=== PATIENT | female | born 1990 | race African-American/Black ===

== ENCOUNTER 2019-11-08 17:31 | Emergency (ER) | payer MEDICAID, OTHER ==
[~2019-11-08] VITALS: Ht 162.6 cm; Wt 84.0 kg
[2019-11-08 20:47] LABS: BASOPHILS % 0.6 % (0.0-2.0); EOSINOPHILS % 10.4 % (0.0-5.0); HEMATOCRIT. 38.7 % (36.0-48.0); HEMOGLOBIN. 12.9 g/dL (12.0-16.0); LYMPHOCYTES % 27.6 % (20.0-50.0); MEAN CORPUSCULAR HEMOGLOBIN 28.3 pg (28.0-32.0); MEAN CORPUSCULAR VOLUME 84.9 fL (81.0-99.0); MEAN PLATELET VOLUME 8.8 fl (7.4-10.4); NEUTROPHILS % 52.4 % (40.0-76.0); PLATELET 229 x1000/uL (130-400); RED BLOOD CELL COUNT 4.56 mill/uL (4.2-5.4); RED CELL DISTRIBUTION WIDTH 13.9 % (11.6-14.6)
[2019-11-08 20:55] LABS: CHLORIDE 104 mEq/L (98-107)
[2019-11-08 21:02] LABS: PROTHROMBIN TIME 10.9 sec (9.6-11.0)
[2019-11-08 21:25] LABS: HCG SCREEN POSITIVE
[2019-11-08] MEDS ORDERED: ACETAMINOPHEN 325MG TABLET PO ONE (22:15)
[2019-11-08 22:36] LABS: CLARITY URINE CLEAR (CLEAR); COLOR URINE YELLOW (YELLOW); KETONES URINE NEGATIVE (NEGATIVE); LEUKOCYTE ESTERASE URINE TRACE (NEGATIVE); NITRITE URINE NEGATIVE (NEGATIVE); OCCULT BLOOD URINE 1+ (NEGATIVE); PH URINE 7.5 (4.5-8.0); PROTEIN URINE NEGATIVE (NEGATIVE); SPECIFIC GRAVITY URINE 1.021 (1.005-1.030)
[2019-11-08 23:45] VITALS: BP 114/68
== END 2019-11-09 00:03 | disposition home or self-care (01) ==
LOC: ER 17:31
DX: O46.91 Antepartum hemorrhage, unspecified, first trimester (principal); O26.891 Other specified pregnancy related conditions, first trimester; R10.9 Unspecified abdominal pain; Z3A.08 8 weeks gestation of pregnancy
CPT/HCPCS: 36415; 76801; 80053; 81003; 84702; 84703; 85025; 86850; 86900; 99284

== ENCOUNTER 2019-11-10 12:52 | Emergency (ER) | payer OTHER ==
[~2019-11-10] VITALS: Ht 162.6 cm; Wt 83.0 kg
[2019-11-10] MEDS ORDERED: ACETAMINOPHEN 325MG TABLET PO PRN (15:30)
[2019-11-10 15:48] LABS: BASOPHILS % 0.8 % (0.0-2.0); EOSINOPHILS % 10.5 % (0.0-5.0); HEMATOCRIT. 38.4 % (36.0-48.0); HEMOGLOBIN. 12.8 g/dL (12.0-16.0); LYMPHOCYTES % 25.7 % (20.0-50.0); MEAN CORPUSCULAR HEMOGLOBIN 28.3 pg (28.0-32.0); MEAN CORPUSCULAR VOLUME 84.5 fL (81.0-99.0); MEAN PLATELET VOLUME 8.5 fl (7.4-10.4); MONOCYTES % 6.1 % (2.0-8.0); NEUTROPHILS % 56.9 % (40.0-76.0); PLATELET 237 x1000/uL (130-400); RED BLOOD CELL COUNT 4.54 mill/uL (4.2-5.4); RED CELL DISTRIBUTION WIDTH 13.6 % (11.6-14.6)
[2019-11-10 15:54] LABS: CHLORIDE 103 mEq/L (98-107)
[2019-11-10 15:56] LABS: CLARITY URINE CLEAR (CLEAR); COLOR URINE YELLOW (YELLOW); KETONES URINE NEGATIVE (NEGATIVE); LEUKOCYTE ESTERASE URINE NEGATIVE (NEGATIVE); NITRITE URINE NEGATIVE (NEGATIVE); OCCULT BLOOD URINE 2+ (NEGATIVE); PH URINE 6.5 (4.5-8.0); PROTEIN URINE NEGATIVE (NEGATIVE); SPECIFIC GRAVITY URINE 1.007 (1.005-1.030); UROBILINOGEN URINE 0.2 E.U./dL (0.2-1.0)
[2019-11-10 16:18] LABS: B-HCG QUANTITATIVE 2517 mIU/mL (<3)
[2019-11-10 17:41] VITALS: BP 130/76
== END 2019-11-10 17:42 | disposition home or self-care (01) ==
LOC: ER 12:52
DX: O20.0 Threatened abortion (principal); O23.41 Unspecified infection of urinary tract in pregnancy, first trimester; Z3A.01 Less than 8 weeks gestation of pregnancy
CPT/HCPCS: 36415; 76801; 80053; 81003; 81025; 84702; 85025; 86850; 86900; 99284

== ENCOUNTER 2021-05-14 20:15 | Emergency (ER) | payer OTHER ==
[~2021-05-14] VITALS: Ht 162.6 cm; Wt 82.0 kg
[2021-05-14] MEDS: HYDROCODONE/ACETAMINOPHEN 5/325MG TABLET PO ONE (23:30)
[2021-05-15 04:16] VITALS: BP 152/79
== END 2021-05-15 04:19 | disposition home or self-care (01) ==
LOC: ER 20:15
DX: M25.512 Pain in left shoulder (principal); G50.1 Atypical facial pain; G89.11 Acute pain due to trauma; Y07.499 Other family member, perpetrator of maltreatment and neglect; Y04.2XXA Assault by strike against or bumped into by another person, initial encounter; R03.0 Elevated blood-pressure reading, without diagnosis of hypertension; Y93.89 Activity, other specified; Y92.89 Other specified places as the place of occurrence of the external cause
CPT/HCPCS: 70486; 73030; 81025; 99284

== ENCOUNTER 2023-02-08 08:23 | Emergency (ER) | payer OTHER ==
[~2023-02-08] VITALS: Ht 162.6 cm; Wt 86.2 kg
[2023-02-08 08:27] VITALS: O2SAT 98
[2023-02-08] MEDS ORDERED: METHOCARBAMOL 500MG TABLET PO ONE (09:00)
[2023-02-08] MEDS ORDERED: KETOROLAC 30MG/ML VIAL IM ONE (09:00)
[2023-02-08 10:17] VITALS: BP 121/74; PULSE 84; RESP 64; TEMP 98.6
== END 2023-02-08 10:19 | disposition home or self-care (01) ==
LOC: ER 08:23
DX: M79.81 Nontraumatic hematoma of soft tissue (principal)
CPT/HCPCS: 99283; 81025; 96372; J1885